=== PATIENT | female | born 1945 | race Caucasian/White ===

== ENCOUNTER 2020-02-14 16:16 | Emergency (ER) | payer MEDICARE, SELFPAY ==
[2020-02-14] VITALS (73 sets, daily range): BP systolic 72–159; BP diastolic 35–96; PULSE 44–110; RESP 15–97; TEMP 36.4; O2SAT 96–100
--- NOTE | 2020-02-14 16:25 | DI.RAD.S_ITS ---
PROCEDURE: XR CHEST 1V INDICATIONS: Eval for pneumonia and central line placement TECHNIQUE: One view of the chest was acquired. COMPARISON: None. FINDINGS: Surgical changes and devices: Multiple monitoring wires project over the chest, tearing portions of the right lower lung zone. Surgical clips in right upper quadrant compatible with prior cholecystectomy. Lungs and pleura: Lungs are clear. No pleural effusions or pneumothorax. Eventration right hemidiaphragm. Mediastinum: Mediastinal contours appear normal. Heart size is normal. Bones and chest wall: No suspicious bony lesions. Diffuse osteopenia. Overlying soft tissues appear unremarkable. IMPRESSION: Chest without acute cardiopulmonary abnormalities. Dictated by: Charles Gay M.D. on 02/14/2020 at 19:26 Approved by: Charles Gay M.D. on 02/14/2020 at 19:28
--- NOTE | 2020-02-14 16:31 | ED.GENADULT ---
HPI - General Adult <Franco Medina DO - Last Filed: 02/15/20 07:09> General Chief complaint: Altered Mental Status Stated complaint: Altered mental status Time Seen by Provider: 02/14/20 16:17 Source: EMS Mode of arrival: EMS Limitations: altered mental status History of Present Illness HPI narrative: 74-year-old female here for evaluation brought in by EMS. Patient unable/unwilling to provide much of HPI. Report was the patient's home health found her today with altered mental status and low blood pressure. Secondhand reports state that she was diagnosed with a urinary tract infection approximately 1 month ago. There was some question about whether not she is taking antibiotics. Upon arrival patient was crying out in pain with any sort of movement or touch. She did state she knew she was in the hospital but other than that unsure as to why she was here. Patient states that she just does not feel very well other than that provides little other information. The only other thing she stated was that she was having abdominal pain. Related Data Allergies Allergy/AdvReac Type Severity Reaction Status Date / Time No Known Drug Allergies Allergy Verified 02/14/20 16:21 <Madisyn Neff MD - Last Filed: 02/15/20 01:10> History of Present Illness HPI narrative: Additional data has come to light. 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 Recently was treated for UTI. Medications include oxycodone, nitrofurantoin, potassium, gabapentin, iron, mirtazapine. We do have a number for this son Darryn, at [phone] Review of Systems <Franco Medina DO - Last Filed: 02/15/20 07:09> Review of Systems ROS Unobtainable: Unobtainable due to mental condition Patient History <Franco Medina DO - Last Filed: 02/15/20 07:09> Medical History (Updated 02/15/20 @ 01:02 by Madisyn Neff MD) Colostomy in place (Acute) Intra-abdominal abscess (Acute) Surgical History (Updated 02/15/20 @ 01:04 by Madisyn Neff MD) History of bladder surgery (Acute) S/P colostomy takedown (Acute) Social History marital status: unknown Exam <Franco Medina DO - Last Filed: 02/15/20 07:09> Initial Vital Signs Initial Vital Signs: Vital Signs Temperature 97.6 F 02/14/20 16:21 Pulse Rate 101 H 02/14/20 16:21 Respiratory Rate 18 02/14/20 16:21 Blood Pressure 75/48 L 02/14/20 16:21 Pulse Oximetry 100 02/14/20 16:21 Const General: No acute distress Limitations: altered mental status HENNY Head: normal to inspection and normocephalic Resp Effort & Inspection: normal respiratory effort Auscultation: clear to auscultation bilaterally Cardio Rate: tachycardic Rhythm: regular rhythm Pulses: radial pulses present bilaterally GI Inspection: non-distended Palpation: soft and tender Other: Colostomy in place left side abdomen Skin Other: Patient has some skin breakdown over the midline abdominal incision. Neuro General: alert, awake and moves all extremities Other: Patient is alert to person and place and knows that it is 2020 but otherwise cannot provide any other information Extrem General: normal to inspection and capillary refill normal Psych Appearance: disheveled <Madisyn Neff MD - Last Filed: 02/15/20 01:10> Initial Vital Signs Initial Vital Signs: Vital Signs Temperature 97.6 F 02/14/20 16:21 Pulse Rate 101 H 02/14/20 16:21 Respiratory Rate 18 02/14/20 16:21 Blood Pressure 75/48 L 02/14/20 16:21 Pulse Oximetry 100 02/14/20 16:21 <Madisyn Neff MD - Last Filed: 02/15/20 01:10> Central Line Placement Right IJ: Time Out Performed: Yes Patient Placed on Monitor/Pulse Ox: Yes Prep: mask, gown and gloves Central Line Prep: Chlorhexidine scrub Local Anesthetic: lidocaine 1% Amount of anesthesia used (mL): 3 Ultrasound Used for Placement: Yes Central Line Lumen Inserted: triple Post Procedure: sutured in place Post Procedure X-Ray: tip of catheter in good position and no pneumothorax seen Patient Tolerated Procedure: Well Complications: none Scores <DO Amadeo Joseph Last Filed: 02/15/20 07:09> GCS [place] coma scale eye opening: To sound Rule coma scale verbal response: Confused [place] coma scale motor response: Obey commands Rule coma scale total score: 13 Course <Franco Medina, DO - Last Filed: 02/15/20 07:09> Orders Ordered: Discontinued Medications Sodium Chloride (Normal Saline 0.9%) 1,000 mls @ 1,000 mls/hr IV BOLUS ONE Stop: 02/14/20 17:22 Last Infusion: 02/14/20 18:31 Dose: 0 mls/hr Documented by: Admin: 02/14/20 17:41 Dose: 1,000 mls/hr Documented by: CYNTHIA Ceftriaxone Sodium/Dextrose (Rocephin) 1 gm in 50 mls @ 100 mls/hr IV NOW ONE Stop: 02/14/20 17:41 Last Infusion: 02/14/20 18:55 Dose: 0 mls/hr Documented by: Admin: 02/14/20 18:28 Dose: 100 mls/hr Documented by: CYNTHIA Piperacillin/Tazobactam/Dextrose (Zosyn) 3.375 gm in 50 mls @ 100 mls/hr IV NOW ONE Stop: 02/14/20 18:39 Last Infusion: 02/14/20 19:35 Dose: 0 mls/hr Documented by: Admin: 02/14/20 18:50 Dose: 100 mls/hr Documented by: CYNTHIA Sodium Chloride (Normal Saline 0.9%) 1,656 mls @ 552 mls/hr 30 ml/kg infuse over 3 hr (1656 ml) IV NOW ONE Stop: 02/14/20 21:09 Last Infusion: 02/14/20 20:09 Dose: 0 mls/hr Documented by: Admin: 02/14/20 18:27 Dose: 552 mls/hr Documented by: CYNTHIA Norepinephrine Bitartrate 4 mg (/ Dextrose) 254 mls @ 30.48 mls/hr IV TITRATE SUSANA; Protocol Last Titration: 02/15/20 00:58 Dose: 8 mcg/min, 30.48 mls/hr Documented by: Titration: 02/15/20 00:21 Dose: 8 mcg/min, 30.48 mls/hr Documented by: Titration: 02/15/20 00:10 Dose: 6 mcg/min, 22.86 mls/hr Documented by: Admin: 02/14/20 19:15 Dose: 8 mcg/min, 30.48 mls/hr Documented by: MEISENMandy Sodium Chloride (Normal Saline 0.9%) 1,000 mls @ 1,000 mls/hr IV BOLUS ONE Stop: 02/14/20 21:06 Last Infusion: 02/14/20 20:22 Dose: 0 mls/hr Documented by: Admin: 02/14/20 19:30 Dose: 1,000 mls/hr Documented by: OANH Sodium Chloride (Normal Saline 0.9%) 1,000 mls @ 1,000 mls/hr IV BOLUS ONE Stop: 02/14/20 21:11 Last Infusion: 02/14/20 21:28 Dose: 0 mls/hr Documented by: Infusion: 02/14/20 20:52 Dose: 1,000 mls/hr Documented by: Infusion: 02/14/20 20:45 Dose: 250 mls/hr Documented by: Admin: 02/14/20 20:22 Dose: 1,000 mls/hr Documented by: OANH Lactated Ringer's (Lactated Ringers) 1,000 mls @ 150 mls/hr IV CONT ONE Stop: 02/15/20 02:51 Last Infusion: 02/15/20 00:58 Dose: 150 mls/hr Documented by: Admin: 02/14/20 21:27 Dose: 150 mls/hr Documented by: OANH Micafungin Sodium 100 mg/ (Sodium Chloride) 100 mls @ 100 mls/hr IV NOW ONE Stop: 02/14/20 23:22 Last Admin: 02/15/20 00:29 Dose: Not Given Documented by: OANH Vital Signs Vital signs: Vital Signs - 8 hr 02/14/20 23:10 02/14/20 23:15 02/14/20 23:20 Temperature Pulse Rate 80 80 86 Respiratory Rate 21 22 22 Blood Pressure Blood Pressure [Right Arm] 123/67 121/62 99/63 Pulse Oximetry 99 99 98 02/14/20 23:25 02/14/20 23:30 02/14/20 23:35 Temperature Pulse Rate 88 71 97 H Respiratory Rate 23 23 23 Blood Pressure Blood Pressure [Right Arm] 127/60 109/55 L 108/68 Pulse Oximetry 99 98 97 02/14/20 23:40 02/14/20 23:45 02/14/20 23:50 Temperature Pulse Rate 93 H 98 H 81 Respiratory Rate 21 25 H 27 H Blood Pressure Blood Pressure [Right Arm] 107/53 L 104/56 L 119/79 Pulse Oximetry 99 99 99 02/14/20 23:55 02/15/20 00:00 02/15/20 00:05 Temperature Pulse Rate 93 H 69 70 Respiratory Rate 31 H 17 23 Blood Pressure Blood Pressure [Right Arm] 99/57 L 125/59 L 130/62 Pulse Oximetry 100 97 100 02/15/20 00:10 02/15/20 00:15 02/15/20 00:16 Temperature 97.6 F Pulse Rate 74 102 H 102 H Respiratory Rate 24 24 31 H Blood Pressure Blood Pressure [Right Arm] 124/57 L 86/51 L 89/52 L Pulse Oximetry 99 99 100 02/15/20 00:20 02/15/20 00:25 02/15/20 00:30 Temperature Pulse Rate 72 73 80 Respiratory Rate 21 24 23 Blood Pressure Blood Pressure [Right Arm] 85/54 L 132/61 126/59 L Pulse Oximetry 99 100 100 02/15/20 00:35 02/15/20 00:57 Temperature Pulse Rate 75 105 H Respiratory Rate 24 24 Blood Pressure 96/57 L Blood Pressure [Right Arm] 120/60 Pulse Oximetry 100 99 <Madisyn Neff MD - Last Filed: 02/15/20 01:10> Orders Ordered: Discontinued Medications Sodium Chloride (Normal Saline 0.9%) 1,000 mls @ 1,000 mls/hr IV BOLUS ONE Stop: 02/14/20 17:22 Last Infusion: 02/14/20 18:31 Dose: 0 mls/hr Documented by: Admin: 02/14/20 17:41 Dose: 1,000 mls/hr Documented by: CYNTHIA Ceftriaxone Sodium/Dextrose (Rocephin) 1 gm in 50 mls @ 100 mls/hr IV NOW ONE Stop: 02/14/20 17:41 Last Infusion: 02/14/20 18:55 Dose: 0 mls/hr Documented by: Admin: 02/14/20 18:28 Dose: 100 mls/hr Documented by: CYNTHIA Piperacillin/Tazobactam/Dextrose (Zosyn) 3.375 gm in 50 mls @ 100 mls/hr IV NOW ONE Stop: 02/14/20 18:39 Last Infusion: 02/14/20 19:35 Dose: 0 mls/hr Documented by: Admin: 02/14/20 18:50 Dose: 100 mls/hr Documented by: AGUSTOSENMandy Sodium Chloride (Normal Saline 0.9%) 1,656 mls @ 552 mls/hr 30 ml/kg infuse over 3 hr (1656 ml) IV NOW ONE Stop: 02/14/20 21:09 Last Infusion: 02/14/20 20:09 Dose: 0 mls/hr Documented by: Admin: 02/14/20 18:27 Dose: 552 mls/hr Documented by: CYNTHIA Norepinephrine Bitartrate 4 mg (/ Dextrose) 254 mls @ 30.48 mls/hr IV TITRATE SUSANA; Protocol Last Titration: 02/15/20 00:58 Dose: 8 mcg/min, 30.48 mls/hr Documented by: Titration: 02/15/20 00:21 Dose: 8 mcg/min, 30.48 mls/hr Documented by: Titration: 02/15/20 00:10 Dose: 6 mcg/min, 22.86 mls/hr Documented by: Admin: 02/14/20 19:15 Dose: 8 mcg/min, 30.48 mls/hr Documented by: AGUSTOSENMandy Sodium Chloride (Normal Saline 0.9%) 1,000 mls @ 1,000 mls/hr IV BOLUS ONE Stop: 02/14/20 21:06 Last Infusion: 02/14/20 20:22 Dose: 0 mls/hr Documented by: Admin: 02/14/20 19:30 Dose: 1,000 mls/hr Documented by: OANH Sodium Chloride (Normal Saline 0.9%) 1,000 mls @ 1,000 mls/hr IV BOLUS ONE Stop: 02/14/20 21:11 Last Infusion: 02/14/20 21:28 Dose: 0 mls/hr Documented by: Infusion: 02/14/20 20:52 Dose: 1,000 mls/hr Documented by: Infusion: 02/14/20 20:45 Dose: 250 mls/hr Documented by: Admin: 02/14/20 20:22 Dose: 1,000 mls/hr Documented by: OANH Lactated Ringer's (Lactated Ringers) 1,000 mls @ 150 mls/hr IV CONT ONE Stop: 02/15/20 02:51 Last Infusion: 02/15/20 00:58 Dose: 150 mls/hr Documented by: Admin: 02/14/20 21:27 Dose: 150 mls/hr Documented by: OANH Micafungin Sodium 100 mg/ (Sodium Chloride) 100 mls @ 100 mls/hr IV NOW ONE Stop: 02/14/20 23:22 Last Admin: 02/15/20 00:29 Dose: Not Given Documented by: OANH Vital Signs Vital signs: Vital Signs - 8 hr 02/14/20 23:10 02/14/20 23:15 02/14/20 23:20 Temperature Pulse Rate 80 80 86 Respiratory Rate 21 22 22 Blood Pressure Blood Pressure [Right Arm] 123/67 121/62 99/63 Pulse Oximetry 99 99 98 02/14/20 23:25 02/14/20 23:30 02/14/20 23:35 Temperature Pulse Rate 88 71 97 H Respiratory Rate 23 23 23 Blood Pressure Blood Pressure [Right Arm] 127/60 109/55 L 108/68 Pulse Oximetry 99 98 97 02/14/20 23:40 02/14/20 23:45 02/14/20 23:50 Temperature Pulse Rate 93 H 98 H 81 Respiratory Rate 21 25 H 27 H Blood Pressure Blood Pressure [Right Arm] 107/53 L 104/56 L 119/79 Pulse Oximetry 99 99 99 02/14/20 23:55 02/15/20 00:00 02/15/20 00:05 Temperature Pulse Rate 93 H 69 70 Respiratory Rate 31 H 17 23 Blood Pressure Blood Pressure [Right Arm] 99/57 L 125/59 L 130/62 Pulse Oximetry 100 97 100 02/15/20 00:10 02/15/20 00:15 02/15/20 00:16 Temperature 97.6 F Pulse Rate 74 102 H 102 H Respiratory Rate 24 24 31 H Blood Pressure Blood Pressure [Right Arm] 124/57 L 86/51 L 89/52 L Pulse Oximetry 99 99 100 05/20/20 00:20 02/15/20 00:25 02/15/20 00:30 Temperature Pulse Rate 72 73 80 Respiratory Rate 21 24 23 Blood Pressure Blood Pressure [Right Arm] 85/54 L 132/61 126/59 L Pulse Oximetry 99 100 100 02/15/20 00:35 02/15/20 00:57 Temperature Pulse Rate 75 105 H Respiratory Rate 24 24 Blood Pressure 96/57 L Blood Pressure [Right Arm] 120/60 Pulse Oximetry 100 99 Medical Decision Making <Franco Medina, - Last Filed: 02/15/20 07:09> Lab Data Lab results reviewed: Yes I reviewed the patient's lab results. Result diagrams: 02/14/20 16:31 02/14/20 16:31 Labs: Lab Results 02/14/20 02/14/20 02/14/20 Range/Units 16:31 16:31 16:31 WBC 1.2 L* (4.5-11.0) X10^3/uL RBC 3.70 L (4.0-5.2) X10^6/uL Hgb 10.0 L (12.0-16.0) g/dL Hct 30.0 L (36-46) % MCV 81.0 (80-100) fL MCH 27.0 (26-34) PG MCHC 33.3 (30-36) % RDW 16.3 H (11.6-14.8) % Plt Count 30 L* (150-400) X10^3/uL Neut % (Auto) 53.2 (50-75) % Lymph % (Auto) 40.2 H (25-40) % [place] % (Auto) 4.3 (3-14) % Eos % (Auto) 1.2 L (2-4) % Baso % (Auto) 1.1 (0-2) % Neut # (Auto) 600 L (9816-4087) /uL Lymph # (Auto) 500 L (4241-4256) /uL [place] # (Auto) 0 (0-900) /uL Eos # (Auto) 0 (0-450) /uL Baso # (Auto) 0 (0-100) /uL Platelet Estimate RBC Morphology Normal morphology PT 14.2 H (10.1-12.7) SECONDS INR 1.2 (0.9-1.3) APTT 24 L (26.4-36.2) SECONDS VBG pH (7.33-7.43) VBG pCO2 (45-50) mmHg VBG pO2 (35-45) mmHg VBG HCO3 (23-28) mmol/L VBG Total CO2 (24-29) mmol/L VBG O2 Saturation (70-75) % VBG Base Excess (0-4) mmol/L Sodium 143 (137-145) mmol/L Potassium 3.3 L (3.4-5.1) mmol/L Chloride 106 (98-107) mmol/L Carbon Dioxide 22 (22-32) mmol/L BUN 30 H (7-17) mg/dL Creatinine 1.04 (0.52-1.04) mg/dL Estimated GFR 52.1 L (>60) mL/min BUN/Creatinine Ratio 28.8 H (6-22) Glucose 119 H (80-110) mg/dL Lactate (0.7-2.1) mmol/L Calcium 9.1 (8.4-10.2) mg/dL Total Bilirubin 1.2 (0.2-1.3) mg/dL AST 23 (14-36) IU/L ALT 16 (<35) IU/L Alkaline Phosphatase 214 H (38-126) U/L Ammonia (9-30) umol/L Total Creatine Kinase < 20 L (30-135) U/L CK-MB (CK-2) TNP CK-MB (CK-2) Rel Index TNP Troponin I < 0.012 (0.01-0.034) ng/mL Total Protein 6.9 (6.3-8.2) g/dL Albumin 3.3 L (3.5-5.0) g/dL Globulin 3.6 (1.7-4.1) g/dL Albumin/Globulin Ratio 0.9 L (1.0-2.8) Lipase 95 (23-300) U/L Procalcitonin (<0.5) ng/mL TSH (0.47-4.68) uIU/mL Urine Color Urine Appearance Urine pH (4.5-8.0) Ur Specific [place] (1.000-1.035) Urine Protein (Negative) Urine Glucose (UA) (Negative) g/dL Urine Ketones (NEGATIVE) Urine Occult Blood (Negative) Urine Nitrate (Negative) Urine Bilirubin (NEGATIVE) Ur Bilirubin Confirm (Negative) Urine Urobilinogen (0.2) E.U./dL Ur Leukocyte Esterase (NEGATIVE) Urine RBC (0-5/HPF) Urine WBC (0-5/HPF) Ur Squamous Epith Cells (0-5/HPF) Amorphous Sediment Urine Bacteria (None) Urine Mucus (Negative) Urine Yeast (None) Ur Culture Indicated? Salicylates 1.0 (<20) mg/dL U Opiates 300ng/mL cut (Negative) Ur Oxycodone Screen (Negative) Urine Methadone Screen (Negative) Acetaminophen < 10 L (10-30) ug/mL Ur Barbiturates Screen (Negative) U Tricyclic Antidepress (Negative) Ur Phencyclidine Scrn (Negative) Ur Amphetamines Screen (Negative) U Methamphetamines Scrn (Negative) Ur MDMA Scrn (Ecstasy) (Negative) U Benzodiazepines Scrn (Negative) Urine Cocaine Screen (Negative) U Marijuana (THC) Screen (Negative) Ethyl Alcohol < 10 ( - 10) mg/dL COVID-19 PCR 02/14/20 02/14/20 02/14/20 Range/Units 16:31 16:31 16:31 WBC (4.5-11.0) X10^3/uL RBC (4.0-5.2) X10^6/uL Hgb (12.0-16.0) g/dL Hct (36-46) % MCV (80-100) fL MCH (26-34) PG MCHC (30-36) % RDW (11.6-14.8) % Plt Count (150-400) X10^3/uL Neut % (Auto) (50-75) % Lymph % (Auto) (25-40) % [place] % (Auto) (3-14) % Eos % (Auto) (2-4) % Baso % (Auto) (0-2) % Neut # (Auto) (2649-6776) /uL Lymph # (Auto) (7769-9438) /uL [place] # (Auto) (0-900) /uL Eos # (Auto) (0-450) /uL Baso # (Auto) (0-100) /uL Platelet Estimate RBC Morphology PT (10.1-12.7) SECONDS INR (0.9-1.3) APTT (26.4-36.2) SECONDS VBG pH (7.33-7.43) VBG pCO2 (45-50) mmHg VBG pO2 (35-45) mmHg VBG HCO3 (23-28) mmol/L VBG Total CO2 (24-29) mmol/L VBG O2 Saturation (70-75) % VBG Base Excess (0-4) mmol/L Sodium (137-145) mmol/L Potassium (3.4-5.1) mmol/L Chloride (98-107) mmol/L Carbon Dioxide (22-32) mmol/L BUN (7-17) mg/dL Creatinine (0.52-1.04) mg/dL Estimated GFR (>60) mL/min BUN/Creatinine Ratio (6-22) Glucose (80-110) mg/dL Lactate 3.6 H (0.7-2.1) mmol/L Calcium (8.4-10.2) mg/dL Total Bilirubin (0.2-1.3) mg/dL AST (14-36) IU/L ALT (<35) IU/L Alkaline Phosphatase (38-126) U/L Ammonia (9-30) umol/L Total Creatine Kinase (30-135) U/L CK-MB (CK-2) CK-MB (CK-2) Rel Index Troponin I (0.01-0.034) ng/mL Total Protein (6.3-8.2) g/dL Albumin (3.5-5.0) g/dL Globulin (1.7-4.1) g/dL Albumin/Globulin Ratio (1.0-2.8) Lipase (23-300) U/L Procalcitonin 0.67 H (<0.5) ng/mL TSH 2.76 (0.47-4.68) uIU/mL Urine Color Urine Appearance Urine pH (4.5-8.0) Ur Specific [place] (1.000-1.035) Urine Protein (Negative) Urine Glucose (UA) (Negative) g/dL Urine Ketones (NEGATIVE) Urine Occult Blood (Negative) Urine Nitrate (Negative) Urine Bilirubin (NEGATIVE) Ur Bilirubin Confirm (Negative) Urine Urobilinogen (0.2) E.U./dL Ur Leukocyte Esterase (NEGATIVE) Urine RBC (0-5/HPF) Urine WBC (0-5/HPF) Ur Squamous Epith Cells (0-5/HPF) Amorphous Sediment Urine Bacteria (None) Urine Mucus (Negative) Urine Yeast (None) Ur Culture Indicated? Salicylates (<20) mg/dL U Opiates 300ng/mL cut (Negative) Ur Oxycodone Screen (Negative) Urine Methadone Screen (Negative) Acetaminophen (10-30) ug/mL Ur Barbiturates Screen (Negative) U Tricyclic Antidepress (Negative) Ur Phencyclidine Scrn (Negative) Ur Amphetamines Screen (Negative) U Methamphetamines Scrn (Negative) Ur MDMA Scrn (Ecstasy) (Negative) U Benzodiazepines Scrn (Negative) Urine Cocaine Screen (Negative) U Marijuana (THC) Screen (Negative) Ethyl Alcohol ( - 10) mg/dL COVID-19 PCR 02/14/20 02/14/20 02/14/20 Range/Units 17:00 18:00 18:00 WBC (4.5-11.0) X10^3/uL RBC (4.0-5.2) X10^6/uL Hgb (12.0-16.0) g/dL Hct (36-46) % MCV (80-100) fL MCH (26-34) PG MCHC (30-36) % RDW (11.6-14.8) % Plt Count (150-400) X10^3/uL Neut % (Auto) (50-75) % Lymph % (Auto) (25-40) % [place] % (Auto) (3-14) % Eos % (Auto) (2-4) % Baso % (Auto) (0-2) % Neut # (Auto) (6225-1839) /uL Lymph # (Auto) (9193-2041) /uL [place] # (Auto) (0-900) /uL Eos # (Auto) (0-450) /uL Baso # (Auto) (0-100) /uL Platelet Estimate RBC Morphology PT (10.1-12.7) SECONDS INR (0.9-1.3) APTT (26.4-36.2) SECONDS VBG pH (7.33-7.43) VBG pCO2 (45-50) mmHg VBG pO2 (35-45) mmHg VBG HCO3 (23-28) mmol/L VBG Total CO2 (24-29) mmol/L VBG O2 Saturation (70-75) % VBG Base Excess (0-4) mmol/L Sodium (137-145) mmol/L Potassium (3.4-5.1) mmol/L Chloride (98-107) mmol/L Carbon Dioxide (22-32) mmol/L BUN (7-17) mg/dL Creatinine (0.52-1.04) mg/dL Estimated GFR (>60) mL/min BUN/Creatinine Ratio (6-22) Glucose (80-110) mg/dL Lactate (0.7-2.1) mmol/L Calcium (8.4-10.2) mg/dL Total Bilirubin (0.2-1.3) mg/dL AST (14-36) IU/L ALT (<35) IU/L Alkaline Phosphatase (38-126) U/L Ammonia < 9 L (9-30) umol/L Total Creatine Kinase (30-135) U/L CK-MB (CK-2) CK-MB (CK-2) Rel Index Troponin I (0.01-0.034) ng/mL Total Protein (6.3-8.2) g/dL Albumin (3.5-5.0) g/dL Globulin (1.7-4.1) g/dL Albumin/Globulin Ratio (1.0-2.8) Lipase (23-300) U/L Procalcitonin (<0.5) ng/mL TSH (0.47-4.68) uIU/mL Urine Color Dark yellow Urine Appearance Clear Urine pH 5.0 (4.5-8.0) Ur Specific [place] 1.015 (1.000-1.035) Urine Protein Trace H (Negative) Urine Glucose (UA) Negative (Negative) g/dL Urine Ketones 1+ H (NEGATIVE) Urine Occult Blood Trace-lysed (Negative) Urine Nitrate Negative (Negative) Urine Bilirubin 2+ H (NEGATIVE) Ur Bilirubin Confirm Negative (Negative) Urine Urobilinogen 0.2 (0.2) E.U./dL Ur Leukocyte Esterase Negative (NEGATIVE) Urine RBC 0-1/hpf (0-5/HPF) Urine WBC 1-5/hpf (0-5/HPF) Ur Squamous Epith Cells 0-1 /hpf (0-5/HPF) Amorphous Sediment 1+ Urine Bacteria Occasional (0-1) (None) Urine Mucus 1+ H (Negative) Urine Yeast 5-10/hpf H (None) Ur Culture Indicated? Specimen cultured Salicylates (<20) mg/dL U Opiates 300ng/mL cut Negative (Negative) Ur Oxycodone Screen Negative (Negative) Urine Methadone Screen Negative (Negative) Acetaminophen (10-30) ug/mL Ur Barbiturates Screen Negative (Negative) U Tricyclic Antidepress Negative (Negative) Ur Phencyclidine Scrn Negative (Negative) Ur Amphetamines Screen Negative (Negative) U Methamphetamines Scrn Negative (Negative) Ur MDMA Scrn (Ecstasy) Negative (Negative) U Benzodiazepines Scrn Negative (Negative) Urine Cocaine Screen Negative (Negative) U Marijuana (THC) Screen Negative (Negative) Ethyl Alcohol ( - 10) mg/dL COVID-19 PCR 02/14/20 02/14/20 02/14/20 Range/Units 18:15 18:15 19:05 WBC (4.5-11.0) X10^3/uL RBC (4.0-5.2) X10^6/uL Hgb (12.0-16.0) g/dL Hct (36-46) % MCV (80-100) fL MCH (26-34) PG MCHC (30-36) % RDW (11.6-14.8) % Plt Count (150-400) X10^3/uL Neut % (Auto) (50-75) % Lymph % (Auto) (25-40) % [place] % (Auto) (3-14) % Eos % (Auto) (2-4) % Baso % (Auto) (0-2) % Neut # (Auto) (5585-5396) /uL Lymph # (Auto) (9271-3175) /uL [place] # (Auto) (0-900) /uL Eos # (Auto) (0-450) /uL Baso # (Auto) (0-100) /uL Platelet Estimate RBC Morphology PT (10.1-12.7) SECONDS INR (0.9-1.3) APTT (26.4-36.2) SECONDS VBG pH (7.33-7.43) VBG pCO2 (45-50) mmHg VBG pO2 (35-45) mmHg VBG HCO3 (23-28) mmol/L VBG Total CO2 (24-29) mmol/L VBG O2 Saturation (70-75) % VBG Base Excess (0-4) mmol/L Sodium (137-145) mmol/L Potassium (3.4-5.1) mmol/L Chloride (98-107) mmol/L Carbon Dioxide (22-32) mmol/L BUN (7-17) mg/dL Creatinine (0.52-1.04) mg/dL Estimated GFR (>60) mL/min BUN/Creatinine Ratio (6-22) Glucose (80-110) mg/dL Lactate 1.9 (0.7-2.1) mmol/L Calcium (8.4-10.2) mg/dL Total Bilirubin (0.2-1.3) mg/dL AST (14-36) IU/L ALT (<35) IU/L Alkaline Phosphatase (38-126) U/L Ammonia (9-30) umol/L Total Creatine Kinase (30-135) U/L CK-MB (CK-2) CK-MB (CK-2) Rel Index Troponin I (0.01-0.034) ng/mL Total Protein (6.3-8.2) g/dL Albumin (3.5-5.0) g/dL Globulin (1.7-4.1) g/dL Albumin/Globulin Ratio (1.0-2.8) Lipase (23-300) U/L Procalcitonin (<0.5) ng/mL TSH (0.47-4.68) uIU/mL Urine Color Urine Appearance Urine pH (4.5-8.0) Ur Specific [place] (1.000-1.035) Urine Protein (Negative) Urine Glucose (UA) (Negative) g/dL Urine Ketones (NEGATIVE) Urine Occult Blood (Negative) Urine Nitrate (Negative) Urine Bilirubin (NEGATIVE) Ur Bilirubin Confirm (Negative) Urine Urobilinogen (0.2) E.U./dL Ur Leukocyte Esterase (NEGATIVE) Urine RBC (0-5/HPF) Urine WBC (0-5/HPF) Ur Squamous Epith Cells (0-5/HPF) Amorphous Sediment Urine Bacteria (None) Urine Mucus (Negative) Urine Yeast (None) Ur Culture Indicated? Salicylates (<20) mg/dL U Opiates 300ng/mL cut (Negative) Ur Oxycodone Screen (Negative) Urine Methadone Screen (Negative) Acetaminophen (10-30) ug/mL Ur Barbiturates Screen (Negative) U Tricyclic Antidepress (Negative) Ur Phencyclidine Scrn (Negative) Ur Amphetamines Screen (Negative) U Methamphetamines Scrn (Negative) Ur MDMA Scrn (Ecstasy) (Negative) U Benzodiazepines Scrn (Negative) Urine Cocaine Screen (Negative) U Marijuana (THC) Screen (Negative) Ethyl Alcohol ( - 10) mg/dL COVID-19 PCR Cancelled Negative 02/14/20 Range/Units 19:28 WBC (4.5-11.0) X10^3/uL RBC (4.0-5.2) X10^6/uL Hgb (12.0-16.0) g/dL Hct (36-46) % MCV (80-100) fL MCH (26-34) PG MCHC (30-36) % RDW (11.6-14.8) % Plt Count (150-400) X10^3/uL Neut % (Auto) (50-75) % Lymph % (Auto) (25-40) % [place] % (Auto) (3-14) % Eos % (Auto) (2-4) % Baso % (Auto) (0-2) % Neut # (Auto) (6201-8588) /uL Lymph # (Auto) (0702-2564) /uL [place] # (Auto) (0-900) /uL Eos # (Auto) (0-450) /uL Baso # (Auto) (0-100) /uL Platelet Estimate RBC Morphology PT (10.1-12.7) SECONDS INR (0.9-1.3) APTT (26.4-36.2) SECONDS VBG pH 7.24 L (7.33-7.43) VBG pCO2 29.2 L (45-50) mmHg VBG pO2 27 L (35-45) mmHg VBG HCO3 13 L (23-28) mmol/L VBG Total CO2 13 L (24-29) mmol/L VBG O2 Saturation 40 L (70-75) % VBG Base Excess -15.0 L (0-4) mmol/L Sodium (137-145) mmol/L Potassium (3.4-5.1) mmol/L Chloride (98-107) mmol/L Carbon Dioxide (22-32) mmol/L BUN (7-17) mg/dL Creatinine (0.52-1.04) mg/dL Estimated GFR (>60) mL/min BUN/Creatinine Ratio (6-22) Glucose (80-110) mg/dL Lactate (0.7-2.1) mmol/L Calcium (8.4-10.2) mg/dL Total Bilirubin (0.2-1.3) mg/dL AST (14-36) IU/L ALT (<35) IU/L Alkaline Phosphatase (38-126) U/L Ammonia (9-30) umol/L Total Creatine Kinase (30-135) U/L CK-MB (CK-2) CK-MB (CK-2) Rel Index Troponin I (0.01-0.034) ng/mL Total Protein (6.3-8.2) g/dL Albumin (3.5-5.0) g/dL Globulin (1.7-4.1) g/dL Albumin/Globulin Ratio (1.0-2.8) Lipase (23-300) U/L Procalcitonin (<0.5) ng/mL TSH (0.47-4.68) uIU/mL Urine Color Urine Appearance Urine pH (4.5-8.0) Ur Specific [place] (1.000-1.035) Urine Protein (Negative) Urine Glucose (UA) (Negative) g/dL Urine Ketones (NEGATIVE) Urine Occult Blood (Negative) Urine Nitrate (Negative) Urine Bilirubin (NEGATIVE) Ur Bilirubin Confirm (Negative) Urine Urobilinogen (0.2) E.U./dL Ur Leukocyte Esterase (NEGATIVE) Urine RBC (0-5/HPF) Urine WBC (0-5/HPF) Ur Squamous Epith Cells (0-5/HPF) Amorphous Sediment Urine Bacteria (None) Urine Mucus (Negative) Urine Yeast (None) Ur Culture Indicated? Salicylates (<20) mg/dL U Opiates 300ng/mL cut (Negative) Ur Oxycodone Screen (Negative) Urine Methadone Screen (Negative) Acetaminophen (10-30) ug/mL Ur Barbiturates Screen (Negative) U Tricyclic Antidepress (Negative) Ur Phencyclidine Scrn (Negative) Ur Amphetamines Screen (Negative) U Methamphetamines Scrn (Negative) Ur MDMA Scrn (Ecstasy) (Negative) U Benzodiazepines Scrn (Negative) Urine Cocaine Screen (Negative) U Marijuana (THC) Screen (Negative) Ethyl Alcohol ( - 10) mg/dL COVID-19 PCR ECG Data Attestation: I personally reviewed and interpreted this ECG as follows: Prior ECG tracings: not available for review Interpretation: Sinus rhythm Ventricular rate of 99 Normal axis Normal QRS Nonspecific ST T wave changes MDM Narrative Medical decision making narrative: Afebrile upon arrival, slightly tachycardic. Difficult to obtain history patient due to mental status. Initially had a very difficult time obtaining IV access. Eventually this was obtained. Fluids were administered. When the patient's labs resulted in a leukopenia and a thrombocytopenia and also an elevated lactate antibiotics were ordered. 30 cc/kilos fluid also ordered. CT scan of the head and abdomen pending. Caruso was placed with minimal urine output. Patient also hypotensive however I feel that she is not adequately fluid resuscitated to this point given her urine output. Had some portions during the time that she was here in the ER she did seem to become more lucid however this did seem to wax and wane. Care turned over to Dr. Johnson at 1900 to follow-up on radiologic studies and disposition. <Madisyn Neff MD - Last Filed: 02/15/20 01:10> Medical Records Medical records reviewed: Yes I reviewed the patient's medical records. Lab Data Lab results reviewed: Yes I reviewed the patient's lab results. Lab results narrative: Rapid Covid is negative Labs: Lab Results 02/14/20 02/14/20 02/14/20 Range/Units 16:31 16:31 16:31 WBC 1.2 L* (4.5-11.0) X10^3/uL RBC 3.70 L (4.0-5.2) X10^6/uL Hgb 10.0 L (12.0-16.0) g/dL Hct 30.0 L (36-46) % MCV 81.0 (80-100) fL MCH 27.0 (26-34) PG MCHC 33.3 (30-36) % RDW 16.3 H (11.6-14.8) % Plt Count 30 L* (150-400) X10^3/uL Neut % (Auto) 53.2 (50-75) % Lymph % (Auto) 40.2 H (25-40) % [place] % (Auto) 4.3 (3-14) % Eos % (Auto) 1.2 L (2-4) % Baso % (Auto) 1.1 (0-2) % Neut # (Auto) 600 L (0626-1430) /uL Lymph # (Auto) 500 L (9192-0807) /uL [place] # (Auto) 0 (0-900) /uL Eos # (Auto) 0 (0-450) /uL Baso # (Auto) 0 (0-100) /uL Platelet Estimate RBC Morphology Normal morphology PT 14.2 H (10.1-12.7) SECONDS INR 1.2 (0.9-1.3) APTT 24 L (26.4-36.2) SECONDS VBG pH (7.33-7.43) VBG pCO2 (45-50) mmHg VBG pO2 (35-45) mmHg VBG HCO3 (23-28) mmol/L VBG Total CO2 (24-29) mmol/L VBG O2 Saturation (70-75) % VBG Base Excess (0-4) mmol/L Sodium 143 (137-145) mmol/L Potassium 3.3 L (3.4-5.1) mmol/L Chloride 106 (98-107) mmol/L Carbon Dioxide 22 (22-32) mmol/L BUN 30 H (7-17) mg/dL Creatinine 1.04 (0.52-1.04) mg/dL Estimated GFR 52.1 L (>60) mL/min BUN/Creatinine Ratio 28.8 H (6-22) Glucose 119 H (80-110) mg/dL Lactate (0.7-2.1) mmol/L Calcium 9.1 (8.4-10.2) mg/dL Total Bilirubin 1.2 (0.2-1.3) mg/dL AST 23 (14-36) IU/L ALT 16 (<35) IU/L Alkaline Phosphatase 214 H (38-126) U/L Ammonia (9-30) umol/L Total Creatine Kinase < 20 L (30-135) U/L CK-MB (CK-2) TNP CK-MB (CK-2) Rel Index TNP Troponin I < 0.012 (0.01-0.034) ng/mL Total Protein 6.9 (6.3-8.2) g/dL Albumin 3.3 L (3.5-5.0) g/dL Globulin 3.6 (1.7-4.1) g/dL Albumin/Globulin Ratio 0.9 L (1.0-2.8) Lipase 95 (23-300) U/L Procalcitonin (<0.5) ng/mL TSH (0.47-4.68) uIU/mL Urine Color Urine Appearance Urine pH (4.5-8.0) Ur Specific [place] (1.000-1.035) Urine Protein (Negative) Urine Glucose (UA) (Negative) g/dL Urine Ketones (NEGATIVE) Urine Occult Blood (Negative) Urine Nitrate (Negative) Urine Bilirubin (NEGATIVE) Ur Bilirubin Confirm (Negative) Urine Urobilinogen (0.2) E.U./dL Ur Leukocyte Esterase (NEGATIVE) Urine RBC (0-5/HPF) Urine WBC (0-5/HPF) Ur Squamous Epith Cells (0-5/HPF) Amorphous Sediment Urine Bacteria (None) Urine Mucus (Negative) Urine Yeast (None) Ur Culture Indicated? Salicylates 1.0 (<20) mg/dL U Opiates 300ng/mL cut (Negative) Ur Oxycodone Screen (Negative) Urine Methadone Screen (Negative) Acetaminophen < 10 L (10-30) ug/mL Ur Barbiturates Screen (Negative) U Tricyclic Antidepress (Negative) Ur Phencyclidine Scrn (Negative) Ur Amphetamines Screen (Negative) U Methamphetamines Scrn (Negative) Ur MDMA Scrn (Ecstasy) (Negative) U Benzodiazepines Scrn (Negative) Urine Cocaine Screen (Negative) U Marijuana (THC) Screen (Negative) Ethyl Alcohol < 10 ( - 10) mg/dL COVID-19 PCR 02/14/20 02/14/20 02/14/20 Range/Units 16:31 16:31 16:31 WBC (4.5-11.0) X10^3/uL RBC (4.0-5.2) X10^6/uL Hgb (12.0-16.0) g/dL Hct (36-46) % MCV (80-100) fL MCH (26-34) PG MCHC (30-36) % RDW (11.6-14.8) % Plt Count (150-400) X10^3/uL Neut % (Auto) (50-75) % Lymph % (Auto) (25-40) % [place] % (Auto) (3-14) % Eos % (Auto) (2-4) % Baso % (Auto) (0-2) % Neut # (Auto) (8335-3882) /uL Lymph # (Auto) (6200-3846) /uL [place] # (Auto) (0-900) /uL Eos # (Auto) (0-450) /uL Baso # (Auto) (0-100) /uL Platelet Estimate RBC Morphology PT (10.1-12.7) SECONDS INR (0.9-1.3) APTT (26.4-36.2) SECONDS VBG pH (7.33-7.43) VBG pCO2 (45-50) mmHg VBG pO2 (35-45) mmHg VBG HCO3 (23-28) mmol/L VBG Total CO2 (24-29) mmol/L VBG O2 Saturation (70-75) % VBG Base Excess (0-4) mmol/L Sodium (137-145) mmol/L Potassium (3.4-5.1) mmol/L Chloride (98-107) mmol/L Carbon Dioxide (22-32) mmol/L BUN (7-17) mg/dL Creatinine (0.52-1.04) mg/dL Estimated GFR (>60) mL/min BUN/Creatinine Ratio (6-22) Glucose (80-110) mg/dL Lactate 3.6 H (0.7-2.1) mmol/L Calcium (8.4-10.2) mg/dL Total Bilirubin (0.2-1.3) mg/dL AST (14-36) IU/L ALT (<35) IU/L Alkaline Phosphatase (38-126) U/L Ammonia (9-30) umol/L Total Creatine Kinase (30-135) U/L CK-MB (CK-2) CK-MB (CK-2) Rel Index Troponin I (0.01-0.034) ng/mL Total Protein (6.3-8.2) g/dL Albumin (3.5-5.0) g/dL Globulin (1.7-4.1) g/dL Albumin/Globulin Ratio (1.0-2.8) Lipase (23-300) U/L Procalcitonin 0.67 H (<0.5) ng/mL TSH 2.76 (0.47-4.68) uIU/mL Urine Color Urine Appearance Urine pH (4.5-8.0) Ur Specific [place] (1.000-1.035) Urine Protein (Negative) Urine Glucose (UA) (Negative) g/dL Urine Ketones (NEGATIVE) Urine Occult Blood (Negative) Urine Nitrate (Negative) Urine Bilirubin (NEGATIVE) Ur Bilirubin Confirm (Negative) Urine Urobilinogen (0.2) E.U./dL Ur Leukocyte Esterase (NEGATIVE) Urine RBC (0-5/HPF) Urine WBC (0-5/HPF) Ur Squamous Epith Cells (0-5/HPF) Amorphous Sediment Urine Bacteria (None) Urine Mucus (Negative) Urine Yeast (None) Ur Culture Indicated? Salicylates (<20) mg/dL U Opiates 300ng/mL cut (Negative) Ur Oxycodone Screen (Negative) Urine Methadone Screen (Negative) Acetaminophen (10-30) ug/mL Ur Barbiturates Screen (Negative) U Tricyclic Antidepress (Negative) Ur Phencyclidine Scrn (Negative) Ur Amphetamines Screen (Negative) U Methamphetamines Scrn (Negative) Ur MDMA Scrn (Ecstasy) (Negative) U Benzodiazepines Scrn (Negative) Urine Cocaine Screen (Negative) U Marijuana (THC) Screen (Negative) Ethyl Alcohol ( - 10) mg/dL COVID-19 PCR 02/14/20 02/14/20 02/14/20 Range/Units 17:00 18:00 18:00 WBC (4.5-11.0) X10^3/uL RBC (4.0-5.2) X10^6/uL Hgb (12.0-16.0) g/dL Hct (36-46) % MCV (80-100) fL MCH (26-34) PG MCHC (30-36) % RDW (11.6-14.8) % Plt Count (150-400) X10^3/uL Neut % (Auto) (50-75) % Lymph % (Auto) (25-40) % [place] % (Auto) (3-14) % Eos % (Auto) (2-4) % Baso % (Auto) (0-2) % Neut # (Auto) (9408-2888) /uL Lymph # (Auto) (4222-4465) /uL [place] # (Auto) (0-900) /uL Eos # (Auto) (0-450) /uL Baso # (Auto) (0-100) /uL Platelet Estimate RBC Morphology PT (10.1-12.7) SECONDS INR (0.9-1.3) APTT (26.4-36.2) SECONDS VBG pH (7.33-7.43) VBG pCO2 (45-50) mmHg VBG pO2 (35-45) mmHg VBG HCO3 (23-28) mmol/L VBG Total CO2 (24-29) mmol/L VBG O2 Saturation (70-75) % VBG Base Excess (0-4) mmol/L Sodium (137-145) mmol/L Potassium (3.4-5.1) mmol/L Chloride (98-107) mmol/L Carbon Dioxide (22-32) mmol/L BUN (7-17) mg/dL Creatinine (0.52-1.04) mg/dL Estimated GFR (>60) mL/min BUN/Creatinine Ratio (6-22) Glucose (80-110) mg/dL Lactate (0.7-2.1) mmol/L Calcium (8.4-10.2) mg/dL Total Bilirubin (0.2-1.3) mg/dL AST (14-36) IU/L ALT (<35) IU/L Alkaline Phosphatase (38-126) U/L Ammonia < 9 L (9-30) umol/L Total Creatine Kinase (30-135) U/L CK-MB (CK-2) CK-MB (CK-2) Rel Index Troponin I (0.01-0.034) ng/mL Total Protein (6.3-8.2) g/dL Albumin (3.5-5.0) g/dL Globulin (1.7-4.1) g/dL Albumin/Globulin Ratio (1.0-2.8) Lipase (23-300) U/L Procalcitonin (<0.5) ng/mL TSH (0.47-4.68) uIU/mL Urine Color Dark yellow Urine Appearance Clear Urine pH 5.0 (4.5-8.0) Ur Specific [place] 1.015 (1.000-1.035) Urine Protein Trace H (Negative) Urine Glucose (UA) Negative (Negative) g/dL Urine Ketones 1+ H (NEGATIVE) Urine Occult Blood Trace-lysed (Negative) Urine Nitrate Negative (Negative) Urine Bilirubin 2+ H (NEGATIVE) Ur Bilirubin Confirm Negative (Negative) Urine Urobilinogen 0.2 (0.2) E.U./dL Ur Leukocyte Esterase Negative (NEGATIVE) Urine RBC 0-1/hpf (0-5/HPF) Urine WBC 1-5/hpf (0-5/HPF) Ur Squamous Epith Cells 0-1 /hpf (0-5/HPF) Amorphous Sediment 1+ Urine Bacteria Occasional (0-1) (None) Urine Mucus 1+ H (Negative) Urine Yeast 5-10/hpf H (None) Ur Culture Indicated? Specimen cultured Salicylates (<20) mg/dL U Opiates 300ng/mL cut Negative (Negative) Ur Oxycodone Screen Negative (Negative) Urine Methadone Screen Negative (Negative) Acetaminophen (10-30) ug/mL Ur Barbiturates Screen Negative (Negative) U Tricyclic Antidepress Negative (Negative) Ur Phencyclidine Scrn Negative (Negative) Ur Amphetamines Screen Negative (Negative) U Methamphetamines Scrn Negative (Negative) Ur MDMA Scrn (Ecstasy) Negative (Negative) U Benzodiazepines Scrn Negative (Negative) Urine Cocaine Screen Negative (Negative) U Marijuana (THC) Screen Negative (Negative) Ethyl Alcohol ( - 10) mg/dL COVID-19 PCR 02/14/20 02/14/20 02/14/20 Range/Units 18:15 18:15 19:05 WBC (4.5-11.0) X10^3/uL RBC (4.0-5.2) X10^6/uL Hgb (12.0-16.0) g/dL Hct (36-46) % MCV (80-100) fL MCH (26-34) PG MCHC (30-36) % RDW (11.6-14.8) % Plt Count (150-400) X10^3/uL Neut % (Auto) (50-75) % Lymph % (Auto) (25-40) % [place] % (Auto) (3-14) % Eos % (Auto) (2-4) % Baso % (Auto) (0-2) % Neut # (Auto) (5587-1903) /uL Lymph # (Auto) (9088-2978) /uL [place] # (Auto) (0-900) /uL Eos # (Auto) (0-450) /uL Baso # (Auto) (0-100) /uL Platelet Estimate RBC Morphology PT (10.1-12.7) SECONDS INR (0.9-1.3) APTT (26.4-36.2) SECONDS VBG pH (7.33-7.43) VBG pCO2 (45-50) mmHg VBG pO2 (35-45) mmHg VBG HCO3 (23-28) mmol/L VBG Total CO2 (24-29) mmol/L VBG O2 Saturation (70-75) % VBG Base Excess (0-4) mmol/L Sodium (137-145) mmol/L Potassium (3.4-5.1) mmol/L Chloride (98-107) mmol/L Carbon Dioxide (22-32) mmol/L BUN (7-17) mg/dL Creatinine (0.52-1.04) mg/dL Estimated GFR (>60) mL/min BUN/Creatinine Ratio (6-22) Glucose (80-110) mg/dL Lactate 1.9 (0.7-2.1) mmol/L Calcium (8.4-10.2) mg/dL Total Bilirubin (0.2-1.3) mg/dL AST (14-36) IU/L ALT (<35) IU/L Alkaline Phosphatase (38-126) U/L Ammonia (9-30) umol/L Total Creatine Kinase (30-135) U/L CK-MB (CK-2) CK-MB (CK-2) Rel Index Troponin I (0.01-0.034) ng/mL Total Protein (6.3-8.2) g/dL Albumin (3.5-5.0) g/dL Globulin (1.7-4.1) g/dL Albumin/Globulin Ratio (1.0-2.8) Lipase (23-300) U/L Procalcitonin (<0.5) ng/mL TSH (0.47-4.68) uIU/mL Urine Color Urine Appearance Urine pH (4.5-8.0) Ur Specific [place] (1.000-1.035) Urine Protein (Negative) Urine Glucose (UA) (Negative) g/dL Urine Ketones (NEGATIVE) Urine Occult Blood (Negative) Urine Nitrate (Negative) Urine Bilirubin (NEGATIVE) Ur Bilirubin Confirm (Negative) Urine Urobilinogen (0.2) E.U./dL Ur Leukocyte Esterase (NEGATIVE) Urine RBC (0-5/HPF) Urine WBC (0-5/HPF) Ur Squamous Epith Cells (0-5/HPF) Amorphous Sediment Urine Bacteria (None) Urine Mucus (Negative) Urine Yeast (None) Ur Culture Indicated? Salicylates (<20) mg/dL U Opiates 300ng/mL cut (Negative) Ur Oxycodone Screen (Negative) Urine Methadone Screen (Negative) Acetaminophen (10-30) ug/mL Ur Barbiturates Screen (Negative) U Tricyclic Antidepress (Negative) Ur Phencyclidine Scrn (Negative) Ur Amphetamines Screen (Negative) U Methamphetamines Scrn (Negative) Ur MDMA Scrn (Ecstasy) (Negative) U Benzodiazepines Scrn (Negative) Urine Cocaine Screen (Negative) U Marijuana (THC) Screen (Negative) Ethyl Alcohol ( - 10) mg/dL COVID-19 PCR Cancelled Negative 02/14/20 Range/Units 19:28 WBC (4.5-11.0) X10^3/uL RBC (4.0-5.2) X10^6/uL Hgb (12.0-16.0) g/dL Hct (36-46) % MCV (80-100) fL MCH (26-34) PG MCHC (30-36) % RDW (11.6-14.8) % Plt Count (150-400) X10^3/uL Neut % (Auto) (50-75) % Lymph % (Auto) (25-40) % [place] % (Auto) (3-14) % Eos % (Auto) (2-4) % Baso % (Auto) (0-2) % Neut # (Auto) (0434-5058) /uL Lymph # (Auto) (7783-8149) /uL [place] # (Auto) (0-900) /uL Eos # (Auto) (0-450) /uL Baso # (Auto) (0-100) /uL Platelet Estimate RBC Morphology PT (10.1-12.7) SECONDS INR (0.9-1.3) APTT (26.4-36.2) SECONDS VBG pH 7.24 L (7.33-7.43) VBG pCO2 29.2 L (45-50) mmHg VBG pO2 27 L (35-45) mmHg VBG HCO3 13 L (23-28) mmol/L VBG Total CO2 13 L (24-29) mmol/L VBG O2 Saturation 40 L (70-75) % VBG Base Excess -15.0 L (0-4) mmol/L Sodium (137-145) mmol/L Potassium (3.4-5.1) mmol/L Chloride (98-107) mmol/L Carbon Dioxide (22-32) mmol/L BUN (7-17) mg/dL Creatinine (0.52-1.04) mg/dL Estimated GFR (>60) mL/min BUN/Creatinine Ratio (6-22) Glucose (80-110) mg/dL Lactate (0.7-2.1) mmol/L Calcium (8.4-10.2) mg/dL Total Bilirubin (0.2-1.3) mg/dL AST (14-36) IU/L ALT (<35) IU/L Alkaline Phosphatase (38-126) U/L Ammonia (9-30) umol/L Total Creatine Kinase (30-135) U/L CK-MB (CK-2) CK-MB (CK-2) Rel Index Troponin I (0.01-0.034) ng/mL Total Protein (6.3-8.2) g/dL Albumin (3.5-5.0) g/dL Globulin (1.7-4.1) g/dL Albumin/Globulin Ratio (1.0-2.8) Lipase (23-300) U/L Procalcitonin (<0.5) ng/mL TSH (0.47-4.68) uIU/mL Urine Color Urine Appearance Urine pH (4.5-8.0) Ur Specific [place] (1.000-1.035) Urine Protein (Negative) Urine Glucose (UA) (Negative) g/dL Urine Ketones (NEGATIVE) Urine Occult Blood (Negative) Urine Nitrate (Negative) Urine Bilirubin (NEGATIVE) Ur Bilirubin Confirm (Negative) Urine Urobilinogen (0.2) E.U./dL Ur Leukocyte Esterase (NEGATIVE) Urine RBC (0-5/HPF) Urine WBC (0-5/HPF) Ur Squamous Epith Cells (0-5/HPF) Amorphous Sediment Urine Bacteria (None) Urine Mucus (Negative) Urine Yeast (None) Ur Culture Indicated? Salicylates (<20) mg/dL U Opiates 300ng/mL cut (Negative) Ur Oxycodone Screen (Negative) Urine Methadone Screen (Negative) Acetaminophen (10-30) ug/mL Ur Barbiturates Screen (Negative) U Tricyclic Antidepress (Negative) Ur Phencyclidine Scrn (Negative) Ur Amphetamines Screen (Negative) U Methamphetamines Scrn (Negative) Ur MDMA Scrn (Ecstasy) (Negative) U Benzodiazepines Scrn (Negative) Urine Cocaine Screen (Negative) U Marijuana (THC) Screen (Negative) Ethyl Alcohol ( - 10) mg/dL COVID-19 PCR Imaging Data Chest x-ray: Attestation: I personally reviewed and interpreted this imaging study as follows: Radiologist's Impression: IMPRESSION: Chest without acute cardiopulmonary abnormalities. Dictated by: Charles Gay M.D. on 02/14/2020 at 19:26 CT scan - head: Radiologist's Impression: MPRESSION: 1. CT head without acute intracranial abnormalities or acute calvarial fractures. 2. Moderate age-related senescent changes and sequela of chronic small vessel ischemic disease. Dictated by: Charles Gay M.D. on 02/14/2020 at 20:18 CT scan - abdomen/pelvis: Radiologist's Impression: ABDOMEN: Lung bases: Mild left greater than right bibasilar atelectasis. Heart size is normal. Solid organs: Liver is normal in size and enhancement. There is an 8mm hepatic hypodensity noted in the medial segment of the left hepatic lobe (image 21, series 8) which is too small to characterize but likely represents a cyst versus hemangioma. Gallbladder is surgically absent. Biliary system is non dilated. Pancreas enhances normally. Spleen is normal in size and enhancement. No adrenal nodules. Kidneys demonstrate normal size and enhancement, without hydronephrosis. Peritoneum and bowel: There are postoperative changes from hemicolectomy of the left colon with creation of a left midabdominal colostomy. There is a multilobulated thin rim-enhancing fluid collection with markings of air abutting the left lateral, inferior margins of the colon just proximal to the colostomy extending along the lateral left pelvis and lateral margin of the left psoas muscle. A component extends deep into the left pelvis posterior and left lateral to the urinary bladder and apparently communicates with the anastomotic suture line of the rectal stump. There is fluid density material within this collection as well as the rectum. Visualized portions of small bowel appear unremarkable. The largest component of this fluid collection measures approximately 11.4 cm in transverse dimension and 3.5 cm in AP dimension (image 72, series 8). This measures approximately 6.3 cm in maximum coronal caudal dimension measured on image 26, series 10. There appears to be dehiscence of the suture line at the rectal stump best seen on image 74, series 8. No free fluid or air. Nodes and vessels: No retroperitoneal or mesenteric adenopathy by size criteria. Aorta and inferior vena cava are normal in size. Miscellaneous: No ventral hernias. PELVIS: Genitourinary: Bladder wall thickness is normal for degree of distention. There is a Caruso catheter in place. Small amount of air within the urinary bladder likely from catheterization procedure. Miscellaneous: No inguinal hernias or adenopathy. Bones: No suspicious bony lesions. Diffuse osteopenia. No acute vertebral body compression fractures. IMPRESSION: Status post hemicolectomy of the left colon with creation of left mid abdominal colostomy. Apparent dehiscence at the rectal stump anastomotic suture line with associated irregular, multilobulated abscess extending along the lateral and posterior pelvis superiorly towards the distal segments of the colon near the site of the colostomy. Recommend further evaluation with surgical consultation. Other nonacute, chronic findings as above. Findings were discussed with Dr. Neff at 2030 hrs. Dictated by: Charles Gay M.D. on 02/14/2020 at 20:19 ECG Data Attestation: I personally reviewed and interpreted this ECG as follows: Interpretation: Sinus rhythm at a rate of 99, normal axis, normal intervals Nonspecific ST T wave changes without acute ischemia MDM Narrative Medical decision making narrative: Patient is assumed change of shift. She remains confused and unable to give history or participate in review of systems. She is moaning and any type of movement including readjusting bedding seems to cause her pain. She is not localizing anything. There is a delay in getting initial lab work back due to difficult IV access. Once labs are returning they are quite concerning. Became obvious that we needed additional fluid resuscitation, broad-spectrum antibiotics and better IV access. There is no indication that she is having any respiratory cough failure or difficulty suggesting that this might be Covid. Initial blood work suggests pancytopenia with a white count of 1.2, H&H of 10.1 and 30.0, and a platelet count of 30. There is no sign of active bleeding at this time and platelet transfusion is not deemed necessary currently. Blood gas is venous with a pH of 7.24 and a CO2 of 29 Chemistries reveal mild hypokalemia, reasonable renal function but slightly elevated BUN. Transaminases are within normal limits and alkaline phosphatase is slightly elevated only. Negative troponin to suggest cardiac etiology at this time. Procalcitonin is elevated at 0.6 suggesting an infectious etiology. Lactate initially at 3.6 and repeated 2-1/2 hours later with fluid resuscitation is down to 1.9. When labs returned, sepsis was presumed we still do not have a source. Because she seems to be moaning when touching her belly is CT scan will but that will be obtained the source does not hitting to be urine, her chest x-ray is reasonably unremarkable. In placing her central line she has completely compressible internal jugular suggesting significant dehydration. Pressures have continued to be quite low. After 2 L her blood pressure is still a systolic of 80. Levophed will be started now that central line has been successfully placed. Patient is going to the CT scanner at this time. She has had ceftriaxone and that antibiotic spectrum was broadened by adding Zosyn after reviewing additional labs. Her respiratory effort remains completely normal with no respiratory distress, tachypnea, wheezing, coughing or hypoxia. There is no indication for intubation at this time. Will place call to [facility] to see if she has any additional records or oncology notes to suggests some of these labs may be chronic. 8:57 pm Talked with her son Darryn Samson [phone] Had bladder mesh surgery 2 years ago with bowel complications. Eventually septic with intrabdominal abscess, surgery at [email or web address] and 2 colostomies. Had one taken down but unable to take down other. Son says he has been trying to get hold of her for a couple of days and she has not answered her phone. He is not aware of additional medical details other than she usually goes to [facility] She has had surgical care and ICU admissions multiple times at [facility] and around [place] time was transferred from [facility] to [facility] in [place] and had an event where she was successfully coded and eventually went home. Spoke with radiologist regarding CT scan of the abdomen. Appears to have developed a intra-abdominal abscess with possibility of communication with suture line of the rectal pouch. Will contacted of transfer center and see if we can figure out the surgeon that may have seen her to figure out the best hospital to admit her and the surgical team to help her. 911 message left for transfer center nurse to return call to help with deciding appropriate level of care. Face sheet, faxed and images pushed down. Were able to determine the sugeon at [facility] who has cared for her previously is Dr Adams. 9:[address] Jacobs, general surgery mining professionals at [facility]. Agrees that this may be more surgical care/intervention and post op care than we can facilitate at [facility]. [facility]. Will see if beds available and find accepting doc. Will return call. 1100 Son called. Updated on status and wait for available hopsital and admitting physician 112[address] Dr Holman, Hospitalist at [facility]. Will accept patient in transfer. Requests IV antifungal, mycosin 100mg, will order. Patient had fungus in her urine as well as blood cultures but her last visit [facility]. She does have yeast noted again on urinalysis today. To ER to triage with anticipation of direct admit from there. Will need ALS transport. Will wait to have final confirmation that a bed is available from the in house cra at [facility] prior to arranging transport. In summary, 74-year-old woman presents with altered mental status minimal to no history available. Workup reveals pancytopenia with an intra-abdominal abscess and possible communication rectal pouch from prior colostomy. [place] to be septic, total of 4.7 L of fluid eventually given with eventually 1700 cc total of urine output. She received both ceftriaxone and Zosyn. Central line was placed for more aggressive fluid resuscitation as well as access and administration of pressors. [facility] [facility] where she had her initial abdominal surgeries in the majority of her records reside. She is transported via ALS transport with blood pressure 96/67, fluids at 150 cc/hour 8 mcg of Levophed a minute still maintaining airway without any respiratory compromise with anticipation of direct admission to ICU at [facility]. <Madisyn Neff MD - Last Filed: 02/15/20 01:10> Critical Care Time Critical Care Time: Yes Total Critical Care Time: 34 Attestation: Critical care time is separate from other billable procedures. This critical care time includes consultation with family and other consulting doctors, review of records, and interpretation of data from labs, EKGs and imaging as well as managements of hypotension, sespsis, intrabdominal abscess and altered mental status. Discharge Plan Departure Patient Disposition: [facility] Clinical Impression: Intra-abdominal abscess, Pancytopenia Sepsis Qualifiers: Sepsis type: sepsis due to unspecified organism Sepsis acute organ dysfunction status: with acute organ dysfunction Severe sepsis acute organ dysfunction type: unspecified Severe sepsis shock status: with septic shock Qualified Code(s): A41.9 - Sepsis, unspecified organism Discharge Date/Time: 02/15/20 00:57
--- NOTE | 2020-02-14 16:40 | DI.CT.S_ITS ---
PROCEDURE: CT HEAD/BRAIN WO CON INDICATIONS: AMS TECHNIQUE: Noncontrast 4.5 mm thick angled axial sections acquired from the foramen magnum to the vertex, with coronal and sagittal reformats. For radiation dose reduction, the following was used: automated exposure control, adjustment of mA and/or kV according to patient size. COMPARISON: None. FINDINGS: Image quality: Excellent. CSF spaces: Basal cisterns are patent. No extra-axial fluid collections. The ventricles are symmetric in size and shape. Brain: No intracranial bleeds or masses. There is moderate cerebral volume loss for age, with resultant ventricular and sulcal prominence. There are moderate periventricular and deep white matter chronic small vessel ischemic changes. There is intracranial internal carotid artery atherosclerosis. Skull and face: Calvarium and visualized facial bones appear intact, without suspicious lesions. Sinuses: Visualized sinuses and mastoids are clear. IMPRESSION: 1. CT head without acute intracranial abnormalities or acute calvarial fractures. 2. Moderate age-related senescent changes and sequela of chronic small vessel ischemic disease. Dictated by: Charles Gay M.D. on 02/14/2020 at 20:18 Approved by: Charles Gay M.D. on 02/14/2020 at 20:18
[2020-02-14 16:49] LABS: Add Manual Diff / Slide Review NO; Basophils Absolute Auto 0 /uL (0-100); Basophils Percent Auto 1.1 % (0-2); Eosinophils Absolute Auto 0 /uL (0-450); Eosinophils Percent Auto 1.2 % (2-4); Lymphocytes Absolute Auto 500 /uL (1100-4500); Lymphocytes Percent Auto 40.2 % (25-40); Mean Corpuscular HGB Conc 33.3 % (30-36); Monocytes Absolute Auto 0 /uL (0-900); Monocytes Percent Auto 4.3 % (3-14); Neutrophils Absolute Auto 600 /uL (1500-7000); Neutrophils Percent Auto 53.2 % (50-75); Red Cell Distribution Width 16.3 % (11.6-14.8)
[2020-02-14 16:53] LABS: INR 1.2 (0.9-1.3); Prothrombin Time 14.2 SECONDS (10.1-12.7)
[2020-02-14 16:56] LABS: PTT Partial Thromboplastin Tim 24 SECONDS (26.4-36.2)
[2020-02-14 16:59] LABS: Platelet Count 30 X10^3/uL (150-400); White Blood Cell Count 1.2 X10^3/uL (4.5-11.0)
[2020-02-14 17:03] LABS: Lactate (Lactic Acid) 3.6 mmol/L (0.7-2.1)
[2020-02-14 17:05] LABS: Acetaminophen < 10 ug/mL (10-30); Alanine Aminotransferase 16 IU/L (<35); Albumin 3.3 g/dL (3.5-5.0); Albumin Globulin Ratio 0.9 (1.0-2.8); Alkaline Phosphatase 214 U/L (38-126); Aspartate Aminotransferase 23 IU/L (14-36); BUN Creatinine Ratio 28.8 (6-22); Bilirubin Total 1.2 mg/dL (0.2-1.3); Blood Urea Nitrogen 30 mg/dL (7-17); Calcium 9.1 mg/dL (8.4-10.2); Carbon Dioxide 22 mmol/L (22-32); Chloride 106 mmol/L (98-107); Creatine Kinase < 20 U/L (30-135); Estimated Glomerular Filt Rate 52.1 mL/min (>60); Ethanol (ETOH) < 10 mg/dL; Globulin 3.6 g/dL (1.7-4.1); Glucose 119 mg/dL (80-110); HEMOLYSIS < 15 (0-50); Lipase 95 U/L (23-300); Potassium 3.3 mmol/L (3.4-5.1); Sodium 143 mmol/L (137-145); Total Protein 6.9 g/dL (6.3-8.2)
[2020-02-14 17:12] LABS: RBC Morphology Normal Morphology
[2020-02-14 17:17] LABS: Troponin I < 0.012 ng/mL (0.01-0.034)
[2020-02-14 17:19] LABS: Procalcitonin 0.67 ng/mL (<0.5)
[2020-02-14 17:21] LABS: Ammonia (NH3) < 9 umol/L (9-30)
[2020-02-14 17:35] LABS: Thyroid Stimulating Hormone 2.76 uIU/mL (0.47-4.68)
[2020-02-14] MEDS: SODIUM CHLORIDE 0.9% 1,000 ML 1000 ML IV ×3 (17:41→20:22)
--- NOTE | 2020-02-14 18:05 | DI.CT.S_ITS ---
PROCEDURE: CT ABDOMEN PELVIS W CON INDICATIONS: Generalized abdominal pain TECHNIQUE: After the administration of intravenous contrast, 5 mm thick sections acquired from the diaphragm to the symphysis. 5 mm coronal and sagittal reformats were acquired. For radiation dose reduction, the following was used: automated exposure control, adjustment of mA and/or kV according to patient size. COMPARISON: None. FINDINGS: Image quality: Excellent. ABDOMEN: Lung bases: Mild left greater than right bibasilar atelectasis. Heart size is normal. Solid organs: Liver is normal in size and enhancement. There is an 8mm hepatic hypodensity noted in the medial segment of the left hepatic lobe (image 21, series 8) which is too small to characterize but likely represents a cyst versus hemangioma. Gallbladder is surgically absent. Biliary system is non dilated. Pancreas enhances normally. Spleen is normal in size and enhancement. No adrenal nodules. Kidneys demonstrate normal size and enhancement, without hydronephrosis. Peritoneum and bowel: There are postoperative changes from hemicolectomy of the left colon with creation of a left midabdominal colostomy. There is a multilobulated thin rim-enhancing fluid collection with markings of air abutting the left lateral, inferior margins of the colon just proximal to the colostomy extending along the lateral left pelvis and lateral margin of the left psoas muscle. A component extends deep into the left pelvis posterior and left lateral to the urinary bladder and apparently communicates with the anastomotic suture line of the rectal stump. There is fluid density material within this collection as well as the rectum. Visualized portions of small bowel appear unremarkable. The largest component of this fluid collection measures approximately 11.4 cm in transverse dimension and 3.5 cm in AP dimension (image 72, series 8). This measures approximately 6.3 cm in maximum coronal caudal dimension measured on image 26, series 10. There appears to be dehiscence of the suture line at the rectal stump best seen on image 74, series 8. No free fluid or air. Nodes and vessels: No retroperitoneal or mesenteric adenopathy by size criteria. Aorta and inferior vena cava are normal in size. Miscellaneous: No ventral hernias. PELVIS: Genitourinary: Bladder wall thickness is normal for degree of distention. There is a Caruso catheter in place. Small amount of air within the urinary bladder likely from catheterization procedure. Miscellaneous: No inguinal hernias or adenopathy. Bones: No suspicious bony lesions. Diffuse osteopenia. No acute vertebral body compression fractures. IMPRESSION: Status post hemicolectomy of the left colon with creation of left mid abdominal colostomy. Apparent dehiscence at the rectal stump anastomotic suture line with associated irregular, multilobulated abscess extending along the lateral and posterior pelvis superiorly towards the distal segments of the colon near the site of the colostomy. Recommend further evaluation with surgical consultation. Other nonacute, chronic findings as above. Findings were discussed with Dr. Neff at 2030 hrs. Dictated by: Charles Gay M.D. on 02/14/2020 at 20:19 Approved by: Charles Gay M.D. on 02/14/2020 at 20:38
--- NOTE | 2020-02-14 18:05 | PC.NURSE ---
noted pt with vaginal yeast , very tender with schmitz insertion, dr gaffney at [facility]
[2020-02-14] MEDS: SODIUM CHLORIDE 0.9% 552 ML IV (18:27)
[2020-02-14] MEDS: CEFTRIAXONE 1 GM/50 ML FROZ.PIGGY IV (18:28)
[2020-02-14 18:39] LABS: Reflexed Lactate in 2 Hours Y
[2020-02-14 18:48] LABS: UR Morphine/Opiate cutoff 300 Negative (Negative); Ur Creatinine Normal (Normal); Ur Specific Gravity Normal (Normal); Urine Amphetamines Negative (Negative); Urine Barbiturates Negative (Negative); Urine Benzodiazepines Negative (Negative); Urine Cocaine Negative (Negative); Urine MDMA Negative (Negative); Urine Methadone Negative (Negative); Urine Methamphetamines Negative (Negative); Urine Phencyclidine Negative (Negative); Urine Tetrahydrocannabinol Negative (Negative); Urine pH Normal (Normal)
[2020-02-14 18:49] LABS: Appearance Urine UA CLEAR; Bilirubin Urine UA 2+ (NEGATIVE); Glucose Urine UA NEGATIVE (Negative); Ketones Urine UA 1+ (NEGATIVE); Leukocyte Esterase Urine UA NEGATIVE (NEGATIVE); Nitrite Urine UA NEGATIVE (Negative); Occult Blood Urine UA TRACE-LYSED (Negative); Protein Urine UA TRACE (Negative); Specific Gravity Urine UA 1.015 (1.000-1.035); Urine Oxycodone Negative (Negative); Urine Tricyclic Antidepressant Negative (Negative); Urobilinogen Urine UA 0.2 E.U./dL (0.2)
[2020-02-14] MEDS: PIPERACILLIN-TAZO 3.375 GM/50 ML FROZ.PIGGY IV (18:50)
[2020-02-14] MEDS: KETAMINE 500 MG/5 ML INJ (18:53)
[2020-02-14 18:58] LABS: Color Urine UA Dark Yellow
[2020-02-14 19:00] LABS: Ictotest Urine Negative (Negative); RBC Urine 0-1/HPF (0-5/HPF); Squamous Epithelial Cell Urine 0-1 /HPF (0-5/HPF); WBC Urine 1-5/HPF (0-5/HPF)
[2020-02-14 19:01] LABS: Amorphous Sediment Urine 1+; Bacteria Urine Occasional (0-1); Culture Indicated Urine Specimen Cultured; Mucus Urine 1+ (Negative)
[2020-02-14] MEDS: NOREPINEPHRINE 4 MG in DEXTROSE 5% IN WATER 250 ML 30.48 ML IV (19:15)
[2020-02-14 19:27] LABS: Lactate 2HR (Lactic Acid Rflx) 1.9 mmol/L (0.7-2.1)
[2020-02-14 19:37] LABS: PCO2 VBG 29.2 mmHg (45-50); PO2 VBG 27 mmHg (35-45); pH VBG 7.24 (7.33-7.43)
[2020-02-14 19:38] LABS: HCO3 VBG 13 mmol/L (23-28); Oxygen Saturation VBG 40 % (70-75); Total CO2 VBG 13 mmol/L (24-29)
[2020-02-14 19:47] LABS: COVID19 -Nasal RAPID Negative (Negative)
[2020-02-14] MEDS: LACTATED RINGERS 1,000 ML 150 ML IV (21:27)
--- NOTE | 2020-02-14 21:36 | PC.NURSE ---
patient resting in supine position and maintaining airway. patient able to tell me her first and last name and date of . patient able to tell me the year but does not know the month or date. provider aware and no new orders at this time.
[2020-02-15] VITALS (10 sets, daily range): BP systolic 85–132; BP diastolic 51–62; PULSE 69–105; RESP 17–31; TEMP 36.4; O2SAT 97–100
== END 2020-02-15 00:57 | disposition short-term general hospital (02) ==
PROVIDERS: Emergency Medicine; Emergency Provider Emergency Medicine; PCP Family Medicine
DX: K65.1 Peritoneal abscess (principal); D61.818 Other pancytopenia; A41.9 Sepsis, unspecified organism; R41.82 Altered mental status, unspecified; Z11.59 Encounter for screening for other viral diseases; I95.9 Hypotension, unspecified; Z96.0 Presence of urogenital implants
CPT/HCPCS: 36415; 36556; 70450; 71045; 74177; 80053; 80305; 80320; 80329; 81001; 82140; 82550; 82805; 83605; 83690; 84145; 84443; 84484; 85025; 85610; 85730; 87040; 87086; 87635; 93005; 96361; 96365; 96366; 96367; 99285; 99291; 99292; G0480; J2543; Q9967